=== PATIENT | female | born 2005 | race Caucasian/White ===

== ENCOUNTER 2024-06-14 17:58 | Inpatient (IN) | payer OTHER, SELFPAY ==
[2024-06-14] VITALS (7 sets, daily range): BP systolic 99–139; BP diastolic 67–85; PULSE 95–124; RESP 15–20; TEMP 36.7–36.8; O2SAT 100; BMI 22.4
--- NOTE | ~2024-06-14 | XR_ITS ---
EXAMINATION: XR chest 1V portable Exam Date/Time: 06/14/2024 19:19 OFFAL [facility] P[facility]LTRY HISTORY: chest pain Comparison: None. RESULT: Lines, tubes, and devices: None. Lungs and pleura: Clear. Cardiomediastinal silhouette: Normal. Other: No acute osseous or upper abdominal finding. IMPRESSION: No acute cardiopulmonary process. Reviewed, dictated and finalized at location K. L ICER POULTRY
--- NOTE | ~2024-06-14 | CT_ITS ---
EXAMINATION: CTA chest PE protocol DATE: 06/14/2024 21:06 INDICATION: chest pain, dyspnea TECHNIQUE: Computed tomography angiography (CTA) of the chest was performed with 100 mL Omnipaque-350 intravenous contrast timed to evaluate the pulmonary arteries. Coronal maximum intensity projection 3D-reconstructions were created by the technologist. The dose-length product (DLP) was 134.79 mGy-cm. Automated exposure control and iterative reconstruction technique were employed. COMPARISON: X-ray chest, same date. FINDINGS: Lung parenchyma and airways: Clear. Pleura: Unremarkable. Thoracic inlet, axillae and chest wall: Unremarkable. Thoracic aorta: No significant dilation. No dissection. Mediastinum: Normal. Heart and pericardium: Normal. Coronary artery calcifications: Absent. Upper abdomen: No significant finding. Bones: No acute osseous finding. Pulmonary arteries: Study quality: Adequate. No pulmonary emboli detected. IMPRESSION: No CT evidence of acute pulmonary embolus. No acute process detected in the chest. Reviewed, dictated and finalized at location K. PATIONAL THERAPIST ASSISTANT
--- NOTE | 2024-06-14 18:21 | ECG_ITS ---
Test Date: 2024-06-14 18:14:32 Measurements Intervals [place] Rate: 116 P: 76 HI: 138 QRS: 71 QRSD: 81 T: -33 QT: 341 QTc: 474 Interpretive Statements SINUS TACHYCARDIA POSSIBLE LEFT ATRIAL ENLARGEMENT POSSIBLE RIGHT VENTRICULAR CONDUCTION DELAY ST-T WAVE ABNORMALITY IN ANTEROLAT/INF LEADS- CONSIDER ISCHEMIA BASELINE ARTIFACT- I, II, III, AVR, AVL, AVF ABNORMAL ECG No previous ECG available for comparison Electronically Signed On 06-16-2024 06:29:31 OPHTHALMIC ASSISTANT by Gerson Figueredo D.O.
--- NOTE | 2024-06-14 19:24 | ED_ITS ---
HPI - General Adult General Chief complaint: Arrhythmia/Palpitations Stated complaint: heart racing , chest pain Time Seen by Provider: 06/14/24 19:13 History of Present Illness HPI narrative: Patient 19-year-old female who presents emergency department chief complaint of chest pain palpitations. Patient reports that she has been having palpitations and chest pain reports that she was seen by her primary injuries he will has had a Holter monitor test is had an echo and is scheduled for a stress echo and a stress test coming up in the next week. Patient states today she started having some chest pain and felt as though her heart beating fast. Patient states she has a burning sensation in her chest as well and a heaviness sensation the patient reports she is a type 1 diabetic. Related Data Allergies Allergy/AdvReac Type Severity Reaction Status Date / Time nitrofurantoin Allergy Hives Verified 06/14/24 18:01 [From [employer] In Context[employer]] Review of Systems Review of Systems: A 10 system review of systems was completed on the patient and is negative except for what is stated in the HPI. Nursing and ancillary documentation was reviewed. Exam Narrative: GENERAL: Well-appearing, well-nourished, and in no acute distress. HEAD: Normocephalic, atraumatic. EYES: PERRLA and EOMI. ENT: Nares clear, no rhinorrhea or epistaxis. Mucous membranes moist. NECK: Supple. CHEST: Clear to auscultation. No respiratory distress. HEART: Regular rate and rhythm. No murmur heard. Normal peripheral pulses. ABDOMEN: Soft, nontender, nondistended, normal active bowel sounds. EXTREMITIES: Normal range of motion. No edema. SKIN: Warm, dry, no rash. NEURO: No focal deficits. Alert and oriented x3. PSYCH: Normal mood and affect. Course Vital Signs Vital signs: Vital Signs Pulse Rate 121 H 06/14/24 19:11 Respiratory Rate 20 06/14/24 19:11 Blood Pressure 134/84 06/14/24 19:11 Pulse Oximetry 100 06/14/24 19:11 Temperature 36.8 C 06/14/24 20:35 Pulse Rate 104 H 06/14/24 20:40 Respiratory Rate 20 06/14/24 20:40 Blood Pressure 139/85 06/14/24 20:40 Pulse Oximetry 100 06/14/24 20:40 Medical Decision Making MDM Narrative Medical decision making narrative: differential diagnosis includes DKA with euglycemia, UTI, noncompliance laboratory studies were obtained on the patient patient's blood sugar was 106 patient did have a and a gap of 22 and a CO2 of 17 beta hydroxybutyrate was elevated and the patient had a venous blood gas of pH 7.243 urinalysis was abnormal we will attempt to obtain a good clean-catch or catheterized specimen. Patient received 3 L of normal saline boluses will be started on insulin drip and D5 half normal saline with 20 potassium to maintain euglycemia the case was discussed with the hospitalist and historical society director Vital Signs Vital Signs: Vital Signs Pulse Rate 121 H 06/14/24 19:11 Respiratory Rate 20 06/14/24 19:11 Blood Pressure 134/84 06/14/24 19:11 Pulse Oximetry 100 06/14/24 19:11 Temperature 36.8 C 06/14/24 20:35 Pulse Rate 104 H 06/14/24 20:40 Respiratory Rate 20 06/14/24 20:40 Blood Pressure 139/85 06/14/24 20:40 Pulse Oximetry 100 06/14/24 20:40 Lab Data 06/14/24 19:40 06/14/24 19:40 Labs: Lab Results 06/14/24 Range/Units 19:40 WBC 15.4 H (4.5-10.0) K/mm3 RBC 5.14 (4.2-5.4) M/mm3 Hgb 16.5 H (12.0-15.0) g/dL Hct 44.8 (37.0-47.0) % MCV 87.2 (80-100) fl MCH 32.1 (26-34) pg MCHC 36.8 H (32-36) g/dl RDW 11.9 (11.5-14.5) % Plt Count 319 (150-375) k/mm3 MPV 11.2 H (7.4-10.4) fl Immature Gran % (Auto) 0.4 (0-0.5) % Neut % (Auto) 67.2 (45.5-73.1) % Lymph % (Auto) 25.3 (18.3-44.2) % [place] % (Auto) 5.8 (2.6-8.5) % Eos % (Auto) 0.5 (0-4.4) % Baso % (Auto) 0.8 (0.2-1.2) % Lymph # (Auto) 3.89 H (0.9-3.2) K/mm3 [place] # (Auto) 0.9 H (0.1-0.6) K/mm3 Eos # (Auto) 0.1 (0-0.3) K/mm3 Baso # (Auto) 0.1 (0.0-0.1) K/mm3 Abs Immat Gran (auto) 0.06 H (0.00-0.031) K/mm3 Absolute Neuts (auto) 10.3 H (1.3-6.7) K/mm3 Absolute Nucleated RBC 0.000 (0.0-0.012) K/mm3 Nucleated RBC % 0.0 (0.0-0.2) % PT 13.7 (11.1-14.7) Seconds INR 1.0 APTT 22.8 (22.3-36.8) Seconds D-Dimer 0.98 H (<0.48) ug/mL Sodium 137 (137-145) mmol/L Potassium 3.4 (3.4-5.0) mmol/L Chloride 108 H (98-107) mmol/L Carbon Dioxide 7 L (22-30) mmol/L Anion Gap 22 H (4-12) mmol/L BUN 9 (7-17) mg/dL Creatinine 0.60 L (0.7-1.0) mg/dL Estim Creat Clear Calc 104 ml/min Estimated GFR > 60 (59 - ) Glucose 106 (65-110) mg/dL Lactic Acid 1.6 (0.7-2.0) mmol/L Calcium 9.6 (8.4-10.2) mg/dL Magnesium 1.7 (1.6-2.3) mg/dL Total Bilirubin 0.8 (0.2-1.3) mg/dL AST 19 (14-36) U/L ALT 14 (6-35) U/L Alkaline Phosphatase 88 (38-126) U/L Troponin I < 0.012 (0.000-0.034) ng/mL NT-Pro-B Natriuret Pep 22 (19.9-100) pg/mL Total Protein 9.0 H (6.3-8.2) g/dL Albumin 5.2 H (3.5-5.1) g/dL Lipase 36 (23-300) U/L Beta-Hydroxybutyrate/Acetoacetate 4.41 H (0.02-0.27) mmol/L Urine Color Yellow (Yellow) Urine Appearance Turbid H (Clear) Urine pH 5.0 (5.0-9.0) Ur Specific [place] 1.035 (1.001-1.035) Urine Protein 3+ H (Negative) mg/dL Urine Glucose (UA) 3+ H (Negative) mg/dL Urine Ketones 4+ H (Negative) mg/dL Ur Blood (Man) 3+ H (Negative) Urine Nitrate Negative (Negative) Urine Bilirubin Negative (Negative) Urine Urobilinogen 0.2 (<2.0) mg/dL Add Ur Microanalysis Reviewed Leukocyte Esterase Rfl Trace H (Negative) JUNO/UL Urine RBC 6-10 H (0-2) /hpf Urine WBC >100 H (0-3) /hpf Ur Squamous Epith Cells Many H (Few) /hpf Urine Bacteria 4+ H /hpf Urine Casts 11-20 Hyaline Casts Present (None) /lpf Urine Mucus Present /lpf Urine Opiates Screen Negative (Negative) Urine Methadone Screen Negative (Negative) Ur Barbiturates Screen Negative (Negative) Ur Phencyclidine Scrn Negative (Negative) Ur Amphetamine Screen Negative (Negative) U Benzodiazepines Scrn Negative (Negative) Urine Cocaine Screen Negative (Negative) U Cannabinoids Screen Positive A (Negative) ABG Data ABG results: 06/14/24 21:29 VBG pH 7.243 L* VBG pCO2 39.9 L VBG pO2 < 27.0 L VBG HCO3 16.8 L O2 Delivery Device Room air O2 Liters/Min Not Reportable FiO2 21 Critical Care Time Critical Care Time Critical Care Time: Yes Total Critical Care Time: 30 Discharge Plan Discharge Clinical Impression: Diabetic ketosis, Abnormal urinalysis Patient Disposition: Still a Patient Condition: Stable Follow-up/Referrals: Billy,JANI Cannon [Primary Care Provider] - Time of Disposition: 21:47
[2024-06-14] MEDS: SODIUM CHLORIDE 0.9% IV 1,000 ML 999 ML IV CONT ×3 (19:47→22:56)
[2024-06-14 19:58] LABS: Basophils Absolute Auto 0.1 K/mm3 (0.0-0.1); Basophils Percent Auto 0.8 % (0.2-1.2); Eosinophils Absolute Auto 0.1 K/mm3 (0-0.3); Eosinophils Percent Auto 0.5 % (0-4.4); Hematocrit 44.8 % (37.0-47.0); Hemoglobin 16.5 g/dL (12.0-15.0); Immature Granulocyte Absolute 0.06 K/mm3 (0.00-0.031); Immature Granulocyte Percent A 0.4 % (0-0.5); Lymphocytes Absolute Auto 3.89 K/mm3 (0.9-3.2); Lymphocytes Percent Auto 25.3 % (18.3-44.2); Mean Corpuscular HGB Conc 36.8 g/dl (32-36); Mean Corpuscular Hemoglobin 32.1 pg (26-34); Mean Corpuscular Volume 87.2 fl (80-100); Mean Platelet Volume 11.2 fl (7.4-10.4); Monocytes Absolute Auto 0.9 K/mm3 (0.1-0.6); Monocytes Percent Auto 5.8 % (2.6-8.5); Neutrophils Absolute Auto 10.3 K/mm3 (1.3-6.7); Neutrophils Percent Auto 67.2 % (45.5-73.1); Platelet Count Result 319 k/mm3 (150-375); Red Blood Count 5.14 M/mm3 (4.2-5.4); Red Cell Distribution Width 11.9 % (11.5-14.5); White Blood Count 15.4 K/mm3 (4.5-10.0)
[2024-06-14 20:11] LABS: Add Urine Microscopic? YES; Appearance Urine Turbid (Clear); Bacteria Urine 4+ /hpf; Bilirubin Urine Negative (Negative); Blood Urine 3+ (Negative); Color Urine Yellow (Yellow); Glucose Urine UA 3+ mg/dL (Negative); Hyaline Casts Urine Present /lpf; Ketones Urine 4+ mg/dL (Negative); Leukocyte Esterase Ur Trace LEU/UL (Negative); Mucus Urine Present /lpf; Need Manual Microscopic Reviewed; Nitrate Urine Negative (Negative); Protein Urine 3+ mg/dL (Negative); Specific Grav Ur 1.035 (1.001-1.035); Squamous Epithelial Cell Urine Many /hpf (Few); Urobilinogen Urine 0.2 mg/dL (<2.0); WBC Urine >100 /hpf (0-3)
[2024-06-14 20:12] LABS: Alanine Aminotransferase 14 U/L (6-35); Albumin Level 5.2 g/dL (3.5-5.1); Alkaline Phosphatase 88 U/L (38-126); Anion Gap 22 mmol/L (4-12); Aspartate Amino Transferase 19 U/L (14-36); Bilirubin,Total 0.8 mg/dL (0.2-1.3); Blood Urea Nitrogen 9 mg/dL (7-17); Calcium 9.6 mg/dL (8.4-10.2); Carbon Dioxide 7 mmol/L (22-30); Chloride 108 mmol/L (98-107); Estimated CRCL calculation 104 ml/min; Estimated Glomerular Filt Rate > 60; Glucose 106 mg/dL (65-110); Lipase 36 U/L (23-300); Magnesium 1.7 mg/dL (1.6-2.3); Potassium 3.4 mmol/L (3.4-5.0); Sodium 137 mmol/L (137-145)
[2024-06-14 20:13] LABS: Lactic Acid Reflex 1.6 mmol/L (0.7-2.0)
[2024-06-14 20:15] LABS: Amphetamine Screen Urine Negative (Negative); Barbiturate Screen Urine Negative (Negative); Benzodiazepines Screen Urine Negative (Negative); Cannabinoid Screen Urine Positive (Negative); Cocaine Screen Urine Negative (Negative); Methadone Screen Urine Negative (Negative); Opiate Screen Urine Negative (Negative); Phencyclidine Screen Urine Negative (Negative); Prothrombin Time 13.7 Seconds (11.1-14.7)
[2024-06-14 20:16] LABS: Partial Thromboplastin Time 22.8 Seconds (22.3-36.8)
[2024-06-14 20:24] LABS: NT Pro B Type Natriuretic Pept 22 pg/mL (19.9-100); Troponin I < 0.012 ng/mL (0.000-0.034)
[2024-06-14 20:26] LABS: D Dimer 0.98 ug/mL (<0.48)
[2024-06-14] MEDS: POTASSIUM CHLORIDE 20 MEQ PACKET (FOR LIQUID) 40 MEQ PO (20:39)
[2024-06-14] MEDS: MAGNESIUM SULF 2 GM/WATER 50ML 2 GM/50 ML BAG IVPB (20:44)
[2024-06-14 20:58] LABS: Beta-Hydroxybutyrate/Acetoacetate 4.41 mmol/L (0.02-0.27)
[2024-06-14 21:32] LABS: Fractional Inspired Oxygen 21 %; HCO3 VBG 16.8 mEq/l (24.0-30.0); PCO2 VBG 39.9 mmHg (42.0-48.0)
[2024-06-14 21:33] LABS: Device ROOM AIR; PO2 VBG < 27.0 mmHg (35.0-45.0); pH VBG 7.243 (7.300-7.400)
[2024-06-14 21:49] LABS: Glucose Point of Care 79 mg/dl (65-105)
[2024-06-14] MEDS: KCL 20 MEQ/D5/0.45% SOD CHL 1,000 ML 150 ML IV CONT (22:07)
--- NOTE | 2024-06-14 22:17 | PC.NURSE ---
Verbal order read back from Dr. Gentile to start KCL D5 and infuse for 1 hour before starting insulin drip due to pts current BS.
[2024-06-14 22:28] LABS: Glucose Point of Care 99 mg/dl (65-105)
[2024-06-14 22:29] LABS: Anion Gap 13 mmol/L (4-12); Blood Urea Nitrogen 8 mg/dL (7-17); Calcium 8.4 mg/dL (8.4-10.2); Carbon Dioxide 11 mmol/L (22-30); Chloride 108 mmol/L (98-107); Estimated CRCL calculation 123 ml/min; Estimated Glomerular Filt Rate > 60; Glucose 96 mg/dL (65-110); Potassium 4.7 mmol/L (3.4-5.0); Sodium 132 mmol/L (137-145)
[2024-06-14 22:35] LABS: Phosphorus 1.7 mg/dL (2.5-4.5)
[2024-06-14 22:42] LABS: Hemoglobin A1C 12.6 % (<5.7)
[2024-06-14 23:37] LABS: Glucose Point of Care 98 mg/dl (65-105)
--- NOTE | 2024-06-14 23:43 | P.HP_ITS ---
H&P: HPI History of Present Illness Date/Time: 06/14/24 23:43 Chief Complaint: Heart is racing Narrative: 19-year-old female with a past medical history of type 1 diabetes mellitus since age 12 and grade 2 bladder reflux who presented to the ER with chest pain and ?heart racing. The patient recently had EKG, echocardiogram and heart monitor due to episodes of tachycardia. She reports that for the last 6 or 8 weeks she had been having episodes of heart racing. She reports that her smart watch has told her heart rate is been up to 210. She had a heart Holter taken off yesterday. She has an echocardiogram and stress test coming up next week. She reports that she has been having substernal burning chest pain that is also stabbing in nature. The pain comes and goes and lasts anywhere from a few minut es to an indeterminate amount of time. She reports that the symptoms can occur ?up to 30-40 times a day?. She reports that usually the chest pain occurs when her heart is beating fast. She was recently evaluated at a small outside ER and discharged home about 2 weeks ago. She was hospitalized for DKA about 2 months ago. She states that she does not remember what her A1c is but she knows that is higher than what is post be for her goal. She thinks that it may be 9 or 10. However she reports that for the most part her glucoses are well controlled between 90 and 110. She reports that she was recently started on Omnipod. At the time my evaluation I did look at the patient's glucoses in documentation on her device. Next the patient initial glucose with changing of her sensor and Omnipod today when the pump was initially applied her glucoses were in the 350s. I do not have access to the records of what her glucoses were prior. However since she has placed her insulin pump on her glucoses have come down into the 90s in appear to have stayed there since then. She reports that any time she eats her glucoses do 10 to shoot up. She states that her insulin to carb ratio is 1 unit of insulin for every 8 carbs. She has a correction factor of 1 unit of insulin for every 10 g of glucose above 130. Her basal rate on her Omnipod between 00:00 and 12:00 is 0.75 units and between 12:00 and 00:00 at 0.9 units. She states that her primary care provider has been managing her diabetes. She is supposed to follow-up with the treatment technician in the next couple of months. She has been having intermittent symptoms of polydipsia and polyuria. She denies any dysuria or acute polyuria this time. She denies any hematuria. She reports that she is on chronic fluconazole for the last 6 months due to yeast infections. She denies dysuria, hematuria or increased urinary urgency from baseline. She has been having some intermittent nausea but denies any currently. She has had significant weight loss but she cannot give me a time frame her weight loss or specific amount. She states that her sister used to weigh the same amount and her sister who was at bedside appears to be 20-30 lb heavier than the patient in general. Review of Systems Review of Systems: 12 systems were reviewed with pertinent positives and negatives per HPI. Except as documented in the HPI, all other systems were reviewed and are negative. [facility] Past Medical History Medical History (Updated 06/15/24 @ 02:28 by Valarie Gentile DO) Anxiety and depression Reflex neuropathic bladder, not elsewhere classified Type 1 diabetes mellitus Surgical History Surgical History (Updated 06/15/24 @ 02:08 by Valarie Gentile DO) History of section, low transverse (06/2022) With delivery of term male infant Family History Family History (Updated 06/15/24 @ 00:14 by Nereida Bourgeois RN) Grandparent Congestive heart failure Social History Social History (Updated 06/15/24 @ 02:11 by Valarie eGntile DO) Social History: The patient is single. She and her 2-year-old son live with her parents. 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 She has smoked/weight since she was 14. She reports that she quit taking marijuana last week in April of 2024. She drinks 1-2 alcoholic beverages once or twice a week. Code status: Full code Surrogate decision maker: Mother Years smoked: 3 Smoking status: Current every day smoker Tobacco type: e-cigarettes/vaping Alcohol intake: current Drinks per week: 4 Substance use: former Substance use type: marijuana Last use: 04/2024 Do You Feel Safe in your Home?: Yes Lack of Transportation: No Lack of Food: Never True Current Housing: I Have Housing Concerned About Future Housing: No Difficulty Paying Gas/Electric Bills: No Difficulty Paying for Meds: No Currently Unemployed: No Education: High School Diploma/GED Difficulty w/ Childcare or Family Care: No Spiritual care concerns: No Meds Home Medications and Allergies Home Medications Medication Instructions Recorded Confirmed Type blood-glucose sensor (Dexcom G7 06/15/24 06/15/24 History Sensor device) buspirone 10 mg tablet 15 mg PO TID 06/15/24 06/15/24 History diclofenac sodium 75 mg 50 mg PO DAILY 06/15/24 06/15/24 History tablet,delayed release escitalopram oxalate 20 mg tablet 20 mg PO DAILY 06/15/24 06/15/24 History insulin lispro 100 unit/mL 15 unit subcut DAILY 06/15/24 06/15/24 History subcutaneous pen (Humalog KwikPen (U-100) Insulin) pen needle, diabetic 31 gauge x 06/15/24 06/15/24 History 5/16 (BD Ultra-Fine Short Pen Needle) quetiapine 50 mg tablet 50 mg PO DAILY 06/15/24 06/15/24 History Allergies Allergy/AdvReac Type Severity Reaction Status Date / Time nitrofurantoin Allergy Hives Verified 06/14/24 18:01 [From Macrobid] Vital Signs Vital Signs - 24 hr 06/14/24 19:11 06/14/24 19:48 06/14/24 20:35 Temperature 98.2 F Pulse Rate 121 H 124 H Respiratory Rate 20 Blood Pressure 134/84 Pulse Oximetry 100 06/14/24 20:40 06/14/24 22:24 Temperature Pulse Rate 104 H 104 H Respiratory Rate 20 15 Blood Pressure 139/85 119/82 Pulse Oximetry 100 100 Exam Narrative: Weight 57.6 kg BMI 22.5 Const: Other: No acute distress, well-developed well-nourished, appears stated age HENMT: Other: Mucous membranes are tacky, no oral pharyngeal erythema, fair dentition, head is normocephalic atraumatic Eyes: Other: Pupils are equal and reactive, no scleral icterus Neck: Other: No JVD, no gross thyromegaly Resp: Other: Clear to auscultation bilaterally, no increased work of breathing Cardio: Other: Sinus tachycardia, 2+ bilateral radial pedal pulses, no murmur GI: Other: Soft, nontender, nondistended, positive bowel sounds, belly button ring present Skin: Other: No jaundice, no pallor Neuro: Other: Alert oriented, speech is clear, no facial asymmetry, moves all extremities equally Extrem: Other: No clubbing, cyanosis or edema Psych: Other: Anxious, pleasant, cooperative, fair judgment and insight H&P: Results Labs Labs: Short CBC 06/14/24 Range/Units 19:40 WBC 15.4 H (4.5-10.0) K/mm3 Hgb 16.5 H (12.0-15.0) g/dL Hct 44.8 (37.0-47.0) % Plt Count 319 (150-375) k/mm3 BMP 06/14/24 06/14/24 19:40 22:03 Sodium 137 132 L Potassium 3.4 4.7 Chloride 108 H 108 H Carbon Dioxide 7 L 11 L BUN 9 8 Creatinine 0.60 L 0.50 L Glucose 106 96 Calcium 9.6 8.4 Cardiac Enzymes 06/14/24 Range/Units 19:40 Troponin I < 0.012 (0.000-0.034) ng/mL Liver Function 06/14/24 Range/Units 19:40 Total Bilirubin 0.8 (0.2-1.3) mg/dL AST 19 (14-36) U/L ALT 14 (6-35) U/L Alkaline Phosphatase 88 (38-126) U/L Albumin 5.2 H (3.5-5.1) g/dL Urine 06/14/24 Range/Units 19:40 Urine Color Yellow (Yellow) Urine Appearance Turbid H (Clear) Urine pH 5.0 (5.0-9.0) Ur Specific [place] 1.035 (1.001-1.035) Urine Protein 3+ H (Negative) mg/dL Urine Glucose (UA) 3+ H (Negative) mg/dL Laboratory Tests 06/14/24 19:40 06/14/24 22:03 06/14/24 06/14/24 06/14/24 19:40 21:29 21:46 WBC 15.4 H RBC 5.14 Hgb 16.5 H Hct 44.8 MCV 87.2 MCH 32.1 MCHC 36.8 H RDW 11.9 Plt Count 319 MPV 11.2 H Immature Gran % (Auto) 0.4 Neut % (Auto) 67.2 Lymph % (Auto) 25.3 [place] % (Auto) 5.8 Eos % (Auto) 0.5 Baso % (Auto) 0.8 Lymph # (Auto) 3.89 H [place] # (Auto) 0.9 H Eos # (Auto) 0.1 Baso # (Auto) 0.1 Abs Immat Gran (auto) 0.06 H Absolute Neuts (auto) 10.3 H Absolute Nucleated RBC 0.000 Nucleated RBC % 0.0 PT 13.7 INR 1.0 APTT 22.8 D-Dimer 0.98 H VBG pH 7.243 L* VBG pCO2 39.9 L VBG pO2 < 27.0 L VBG HCO3 16.8 L O2 Delivery Device Room air O2 Liters/Min Not Reportable FiO2 21 Sodium 137 Potassium 3.4 Chloride 108 H Carbon Dioxide 7 L Anion Gap 22 H BUN 9 Creatinine 0.60 L Estim Creat Clear Calc 104 Estimated GFR > 60 Glucose 106 POC Capillary Glucose 79 Hemoglobin A1c Lactic Acid 1.6 Calcium 9.6 Phosphorus Magnesium 1.7 Total Bilirubin 0.8 AST 19 ALT 14 Alkaline Phosphatase 88 Troponin I < 0.012 NT-Pro-B Natriuret Pep 22 Total Protein 9.0 H Albumin 5.2 H Lipase 36 Beta-Hydroxybutyrate/Acetoacetate 4.41 H Urine Color Yellow Urine Appearance Turbid H Urine pH 5.0 Ur Specific [place] 1.035 Urine Protein 3+ H Urine Glucose (UA) 3+ H Urine Ketones 4+ H Ur Blood (Man) 3+ H Urine Nitrate Negative Urine Bilirubin Negative Urine Urobilinogen 0.2 Add Ur Microanalysis Reviewed Leukocyte Esterase Rfl Trace H Urine RBC 6-10 H Urine WBC >100 H Ur Squamous Epith Cells Many H Urine Bacteria 4+ H Urine Casts 11-20 Hyaline Casts Present Urine Mucus Present Urine Opiates Screen Negative Urine Methadone Screen Negative Ur Barbiturates Screen Negative Ur Phencyclidine Scrn Negative Ur Amphetamine Screen Negative U Benzodiazepines Scrn Negative Urine Cocaine Screen Negative U Cannabinoids Screen Positive A 06/14/24 06/14/24 06/14/24 22:03 22:13 23:34 WBC RBC Hgb Hct MCV MCH MCHC RDW Plt Count MPV Immature Gran % (Auto) Neut % (Auto) Lymph % (Auto) [place] % (Auto) Eos % (Auto) Baso % (Auto) Lymph # (Auto) [place] # (Auto) Eos # (Auto) Baso # (Auto) Abs Immat Gran (auto) Absolute Neuts (auto) Absolute Nucleated RBC Nucleated RBC % PT INR APTT D-Dimer VBG pH VBG pCO2 VBG pO2 VBG HCO3 O2 Delivery Device O2 Liters/Min FiO2 Sodium 132 L Potassium 4.7 Chloride 108 H Carbon Dioxide 11 L Anion Gap 13 H BUN 8 Creatinine 0.50 L Estim Creat Clear Calc 123 Estimated GFR > 60 Glucose 96 POC Capillary Glucose 99 98 Hemoglobin A1c 12.6 H Lactic Acid Calcium 8.4 Phosphorus 1.7 L Magnesium Total Bilirubin AST ALT Alkaline Phosphatase Troponin I NT-Pro-B Natriuret Pep Total Protein Albumin Lipase Beta-Hydroxybutyrate/Acetoacetate Urine Color Urine Appearance Urine pH Ur Specific [place] Urine Protein Urine Glucose (UA) Urine Ketones Ur Blood (Man) Urine Nitrate Urine Bilirubin Urine Urobilinogen Add Ur Microanalysis Leukocyte Esterase Rfl Urine RBC Urine WBC Ur Squamous Epith Cells Urine Bacteria Urine Casts Hyaline Casts Urine Mucus Urine Opiates Screen Urine Methadone Screen Ur Barbiturates Screen Ur Phencyclidine Scrn Ur Amphetamine Screen U Benzodiazepines Scrn Urine Cocaine Screen U Cannabinoids Screen Impressions Chest X-Ray 06/14/24 19:30 (personally reviewed and interpreted. IMPRESSION: No acute cardiopulmonary process. Chest CTA 06/14/24 21:10 (personally reviewed) IMPRESSION: No CT evidence of acute pulmonary embolus. No acute process detected in the chest. EKG: Personally reviewed. Sinus tachycardia rate 116 normal QT interval Assessment and Plan Assessment and plan (1) DKA, type 1: Qualifiers: Diabetes mellitus complication detail: without coma Qualified Code(s): E10.10 - Type 1 diabetes mellitus with ketoacidosis without coma Code(s): E10.10 - Type 1 diabetes mellitus with ketoacidosis without coma Status: Acute (2) Tachycardia: Code(s): R00.0 - Tachycardia, unspecified Status: Acute (3) Abnormal urinalysis: Code(s): R82.90 - Unspecified abnormal findings in urine Status: Acute (4) Severe dehydration: Code(s): E86.0 - Dehydration Status: Acute (5) Acute hypokalemia: Code(s): E87.6 - Hypokalemia Status: Acute (6) Hypophosphatemia: Code(s): E83.39 - Other disorders of phosphorus metabolism Status: Acute Plan Patient presents with euglycemic but has markedly elevated anion gap and low serum bicarb. Additional testing demonstrated the patient had elevated beta hydroxy butyrate and VBG demonstrated metabolic acidosis. I suspect patient is a combination of DKA and starvation ketosis. Given the patient's report of pal pitations and other such symptoms I suspect patient has been volume depleted and I would not be surprised if patient had been at least mildly acidotic on and off for a while. Patient received 1.5 L of IV fluids in the ER with an additional 1.5 L that had been ordered but not yet administered on arrival to the ICU. We completed the bolus fluids. The patient has been euglycemic since presentation despite being started on D5 half-normal saline +20 mEq of potassium chloride. The patient is requesting to eat and given her euglycemic state and the need for the patient to actually receive insulin I did advanced the patient's diet to consistent carbohydrate so that we could start insulin drip. Patient's glucoses rapidly climbed to greater than 250. Insulin drip was started. Will continue drip per protocol and will monitor serial electrolyte panel. The patient does have sinus tachycardia initial EKG demonstrated possible left atrial enlargement right ventricular conduction delay ST deviation moderate T- wave abnormality anterior lateral and inferior leads but initial troponin was negative 3 hour troponin also returned negative after arrival to the ICU. The patient's tachycardia had improved significantly with 1.5 L fluid bolus. I feel the patient's palpitations are due to dehydration, DKA and less likely due to structural abnormality or rhythm derangement from cardiac pacemaker. I suspect patient's acidosis is making patient's rhythm more irregular.. Also the patient seems quite anxious in the seems to be feeding some of the patient's tachycardia as she starts talking about her symptoms her heart rate does climb more. Will continue IV fluids and will complete 3 sets of troponins. Repeat EKG on arrival to the ICU demonstrated normal sinus rhythm with a rate of 90 with normal intervals with possible right ventricular conduction delay in V1 and V2 with nonspecific T-wave abnormality (personally interpreted and reviewed). I suspect that part the patient's burning sensation in her chest may also be reflux. Will place patient on Protonix. The patient does have abnormal UA however this seems to be a poor specimen with many squamous cells and quite concentrated with 4+ ketones 3+ glucose and significant protein. She denies significant urinary symptoms to suggest infection. Urine culture and blood cultures are pending. Will hold off on antibiotic therapy and will await culture results. Patient does meet SIRS criteria with tachycardia and leukocytosis however these symptoms are likely due to patient's volume status/hemoconcentration and DKA in less likely due to infection Patient did have some mild hypokalemia and magnesium that was lower limit of no rmal given the patient's history of palpitations she did receive potassium supplementation and magnesium supplementation in the ER. Repeat potassium level was normal at 4.7. Phosphorus level was obtained which also demonstrated hypophosphatemia. Potassium phosphate has been ordered. Will monitor electrolyte panels as discussed above. Will repeat CBC in a.m.. 1 hour spent in critical care activities. Majority of time was spent in direct patient Education and discussion of plan and management. Due to a high probability of clinically significant, life threatening deterioration, the patient required my highest level of preparedness to intervene emergently and I personally spent this critical care time directly and personally managing the patient. This critical care time included obtaining a history; examining the patient; pulse oximetry; ordering and review of studies; arranging urgent treatment with development of a management plan; evaluation of patient's response to treatment; frequent reassessment; and discussions with other providers. It was exclusive of separately billable procedures and treating other patients and teaching time. Please see Assessment and Plan section and the rest of the note for further information on patient assessment and treatment. Quality VTE Prophylaxis VTE prophylaxis: pharmacologic ordered (Lovenox 40 mg subQ daily.) Hospitalist [facility] Advance Care Plan I have confirmed that the patient's Advanced Care Plan is present, code status is documented, or surrogate decision maker is listed in patient medical record.: Yes Medication Reconciliation I have utilized all available resources to obtain, update and review the patients current medications (includes all prescriptions, OTC, herbals, cannabis, and nutritional supplements).: Yes
--- NOTE | 2024-06-14 23:44 | ADMGEN ---
This patient, Amaya Tomlinson, was admitted to Intensive Care Unit-6. Patient/family oriented to hospital policies and general routines including ID bracelet, bed and alarms, visiting hours, pain management, procedures, bathroom and other care routines, personal items, smoking policy, room service/diet, and visiting hours. Recieved patient from Lindsay Lloyd RN who states patient has recieved 1.5/3 L fluids, continuing to infuse fluids now. Information on how to activate the Rapid Response Team has been discussed. Patient/Family are encouraged to report perceived risks to care and to ask questions if they do not understand what they are told or what they should do.
[2024-06-15] VITALS (17 sets, daily range): BP systolic 87–135; BP diastolic 57–102; PULSE 74–115; RESP 10–24; TEMP 36.6–36.9; O2SAT 95–100
[2024-06-15 00:35] LABS: Glucose Point of Care 215 mg/dl (65-105)
--- NOTE | 2024-06-15 00:47 | ECG_ITS ---
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
[2024-06-15 01:05] LABS: Troponin I < 0.012 ng/mL (0.000-0.034)
[2024-06-15] MEDS: PHARMACIST COMMUNICATION ORDER 1 EACH XX (01:21)
[2024-06-15] MEDS: DEXTROSE IV CONT (01:41)
[2024-06-15] MEDS: SOD CHL IV CONT (01:41)
[2024-06-15] MEDS: INSULIN HUMAN REGULAR (*BKC) 100 UNITS in SODIUM CHLORIDE 0.9% IV 99 ML 5.95 UNITS IV CONT (01:42)
[2024-06-15 01:46] LABS: Glucose Point of Care 154 mg/dl (65-105)
[2024-06-15] MEDS: PANTOPRAZOLE SODIUM IV 40 MG VIAL IV PUSH ×3 (02:18→21:31)
[2024-06-15 02:57] LABS: MRSA (PCR) NOT DETECTED (NOT DETECTE)
[2024-06-15 02:58] LABS: Anion Gap 8 mmol/L (4-12); Blood Urea Nitrogen 5 mg/dL (7-17); Calcium 7.5 mg/dL (8.4-10.2); Carbon Dioxide 13 mmol/L (22-30); Chloride 116 mmol/L (98-107); Estimated CRCL calculation 149 ml/min; Estimated Glomerular Filt Rate > 60; Glucose 115 mg/dL (65-110); Potassium 3.1 mmol/L (3.4-5.0); Sodium 137 mmol/L (137-145)
[2024-06-15] MEDS: POTASSIUM PHOS,M-BASIC-D-BASIC 20 MMOL in SODIUM CHLORIDE 0.9% IV 250 ML 64.1 MMOL IVPB (03:19)
[2024-06-15 03:30] LABS: Glucose Point of Care 120 mg/dl (65-105)
[2024-06-15 03:36] LABS: Glucose Point of Care 114 mg/dl (65-105)
[2024-06-15 04:39] LABS: Glucose Point of Care 164 mg/dl (65-105)
[2024-06-15 05:50] LABS: Glucose Point of Care 199 mg/dl (65-105)
[2024-06-15 06:52] LABS: Hematocrit 37.6 % (37.0-47.0); Hemoglobin 13.9 g/dL (12.0-15.0); Mean Corpuscular Hemoglobin 32.5 pg (26-34); Mean Corpuscular Volume 87.9 fl (80-100); Mean Platelet Volume 11.3 fl (7.4-10.4); Platelet Count Result 197 k/mm3 (150-375); Red Blood Count 4.28 M/mm3 (4.2-5.4); Red Cell Distribution Width 12.2 % (11.5-14.5); White Blood Count 7.4 K/mm3 (4.5-10.0)
[2024-06-15 07:09] LABS: Anion Gap 9 mmol/L (4-12); Blood Urea Nitrogen 5 mg/dL (7-17); Calcium 7.6 mg/dL (8.4-10.2); Carbon Dioxide 13 mmol/L (22-30); Chloride 114 mmol/L (98-107); Estimated CRCL calculation 149 ml/min; Estimated Glomerular Filt Rate > 60; Glucose 190 mg/dL (65-110); Potassium 4.2 mmol/L (3.4-5.0); Sodium 136 mmol/L (137-145)
[2024-06-15 07:15] LABS: Fractional Inspired Oxygen 21 %; PO2 VBG 156.8 mmHg (35.0-45.0); pH VBG 7.298 (7.300-7.400)
[2024-06-15 07:16] LABS: Device ROOM AIR; PCO2 VBG 29.2 mmHg (42.0-48.0)
[2024-06-15 07:23] LABS: Glucose Point of Care 177 mg/dl (65-105)
[2024-06-15 07:46] LABS: Glucose Point of Care 165 mg/dl (65-105)
[2024-06-15] MEDS: SODIUM CHLORIDE 23.4% INJ 77 MEQ in DEXTROSE 10% 1,000 ML 150 MEQ IV CONT (07:46)
[2024-06-15] MEDS: LACTATED RINGERS 1,000 ML 999 ML IV CONT (07:46)
[2024-06-15] MEDS: ESCITALOPRAM OXALATE 10 MG TABLET 20 MG PO (08:03)
[2024-06-15] MEDS: QUEtiapine FUMARATE 25 MG TABLET 50 MG PO (08:03)
[2024-06-15] MEDS: ENOXAPARIN 30 MG/0.3 ML SYRINGE SUB-Q (08:04)
[2024-06-15 09:00] LABS: Glucose Point of Care 291 mg/dl (65-105)
--- NOTE | 2024-06-15 09:18 | P.CONIN_ITS ---
Assessment and Plan Assessment and plan (1) DKA, type 1: Qualifiers: Diabetes mellitus complication detail: without coma Qualified Code(s): E10.10 - Type 1 diabetes mellitus with ketoacidosis without coma Code(s): E10.10 - Type 1 diabetes mellitus with ketoacidosis without coma Status: Acute Assessment and Plan: Patient euglycemic diabetic ketoacidosis. Receive IV fluids in the ER and ICU, started on insulin infusion, patient's blood sugars were low so patient is on a D10 infusion along with DKA protocol IV fluids -anion gap has closed but patient remains acidotic -give additional 1 L of LR bolus this morning - continue insulin infusion -will wait for the next set of labs to decide with transition to long-acting insulin and sliding scale insulin (2) Hypophosphatemia: Code(s): E83.39 - Other disorders of phosphorus metabolism Status: Acute Assessment and Plan: Phosphorus has been replaced, will recheck with next blood draw (3) Acute hypokalemia: Code(s): E87.6 - Hypokalemia Status: Acute Assessment and Plan: Hypokalemia has resolved with replacement (4) Severe dehydration: Code(s): E86.0 - Dehydration Status: Acute Assessment and Plan: Patient has been adequately fluid-resuscitated, urine output has been adequate -the renal function is normal (5) Tachycardia: Code(s): R00.0 - Tachycardia, unspecified Status: Acute Assessment and Plan: Tachycardia has resolved (6) Abnormal urinalysis: Code(s): R82.90 - Unspecified abnormal findings in urine Status: Acute Assessment and Plan: Abnormal urinalysis likely related to severe dehydration -UA showed urine casts and many squamous epithelial cells -urine and blood cultures have been obtained -WBC count has resolved. Patient is afebrile Hold antibiotics for now (7) Anxiety and depression: Code(s): F41.9 - Anxiety disorder, unspecified; F32.A - Depression, unspecified Status: Acute Assessment and Plan: Quetiapine, escitalopram, buspirone will restarted Plan DVT prophylaxis: Lovenox Stress ulcer prophylaxis: Not indicated Nutrition: Diabetic diet Code Status: Full code Critical Care Time Spent: 48 minutes Due to a high probability of clinically significant, life threatening deterioration, the patient required my highest level of preparedness to int ervene emergently and I personally spent this critical care time directly and personally managing the patient. This critical care time included obtaining a history; examining the patient; pulse oximetry; ordering and review of studies; arranging urgent treatment with development of a management plan; evaluation of patient's response to treatment; frequent reassessment; and discussions with other providers. It was exclusive of separately billable procedures and treating other patients and teaching time. Please see Assessment and Plan section and the rest of the note for further information on patient assessment and treatment This dictation may have been done utilizing a voice recognition system. Attempts have been made to correct errors. However, there may be uncorrected grammatical, spelling, and recognitions errors present. Craft Recruiter Consult Note Consult date: 06/15/24 Reason for consult: Euglycemic diabetic ketoacidosis, possible starvation ketoacidosis HPI: Amaya Tomlinson is a 19 year old female with past medical history of diabetes type 1, neuropathic bladder, anxiety and depression presented the ED chest pain, palpitations and racing of her heart. Chest pain was burning in sensation. Patient was significantly acidotic in the ED with normal blood sugars. Patient does have insulin pump/Omnipod. Patient was given 2 L of IV fluids in the ER, started on D10 0.45 saline with potassium IV fluids due to blood sugars being low, phosphorus was repleted, started on insulin infusion and transferred to the ICU for further management Patient seen and examined the ICU this morning, is awake, alert, not very pleasant, does not want to answer many questions as she states that she is already told the night doctor everything. Upon further questioning, She stated that she has not been eating too well for a while but she does not know how many days, weeks or months. Hemoglobin A1c was 12.6 on admission, she states her blood sugars have been in 90s to 100s at home. Currently denies any nausea, vomiting, abdominal pain, chest pain, shortness of breath, palpitation Review of Systems Review of Systems: All systems reviewed & are unremarkable except as noted in HPI and below PMFSH Past Medical History Medical History (Updated 06/15/24 @ 09:38 by Mayela Mandel MD) Anxiety and depression Reflex neuropathic bladder, not elsewhere classified Type 1 diabetes mellitus Surgical History Surgical History (Updated 06/15/24 @ 02:08 by Valarie Gentile DO) History of section, low transverse (06/2022) With delivery of term male infant Family History Family History (Updated 06/15/24 @ 00:14 by Nereida Bourgeois RN) Grandparent Congestive heart failure Social History Social History (Updated 06/15/24 @ 02:11 by Valarie Gentile DO) Social History: The patient is single. She and her 2-year-old son live with her parents. 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 She has smoked/weight since she was 14. She reports that she quit taking marijuana last week in April of 2024. She drinks 1-2 alcoholic beverages once or twice a week. Code status: Full code Surrogate decision maker: Mother Years smoked: 3 Smoking status: Current every day smoker Tobacco type: e-cigarettes/vaping Alcohol intake: current Drinks per week: 4 Substance use: former Substance use type: marijuana Last use: 04/2024 Do You Feel Safe in your Home?: Yes Lack of Transportation: No Lack of Food: Never True Current Housing: I Have Housing Concerned About Future Housing: No Difficulty Paying Gas/Electric Bills: No Difficulty Paying for Meds: No Currently Unemployed: No Education: High School Diploma/GED Difficulty w/ Childcare or Family Care: No Spiritual care concerns: No Meds Home Medications and Allergies Home Medications Medication Instructions Recorded Confirmed Type blood-glucose sensor (Dexcom G7 06/15/24 06/15/24 History Sensor device) buspirone 10 mg tablet 15 mg PO TID 06/15/24 06/15/24 History diclofenac sodium 75 mg 50 mg PO DAILY 06/15/24 06/15/24 History tablet,delayed release escitalopram oxalate 20 mg tablet 20 mg PO DAILY 06/15/24 06/15/24 History insulin lispro 100 unit/mL 15 unit subcut DAILY 06/15/24 06/15/24 History subcutaneous pen (Humalog KwikPen (U-100) Insulin) pen needle, diabetic 31 gauge x 06/15/24 06/15/24 History 12/12 (BD Ultra-Fine Short Pen Needle) quetiapine 50 mg tablet 50 mg PO DAILY 06/15/24 06/15/24 History Allergies Allergy/AdvReac Type Severity Reaction Status Date / Time nitrofurantoin Allergy Hives Verified 06/14/24 18:01 [From Macrobid] Vital Signs Vital Signs - 24 hr 06/14/24 19:11 06/14/24 19:48 06/14/24 20:35 Temperature 98.2 F Pulse Rate 121 H 124 H Respiratory Rate 20 Blood Pressure 134/84 Pulse Oximetry 100 Oxygen Delivery 06/14/24 20:40 06/14/24 22:24 06/15/24 00:00 Temperature Pulse Rate 104 H 104 H Respiratory Rate 20 15 Blood Pressure 139/85 119/82 Pulse Oximetry 100 100 Oxygen Delivery Room Air 06/15/24 00:00 06/15/24 02:00 06/15/24 02:00 Temperature Pulse Rate 103 H 92 96 Respiratory Rate 13 Blood Pressure 91/63 L Pulse Oximetry 97 Oxygen Delivery 06/15/24 00:00 06/14/24 22:30 06/14/24 23:28 Temperature 97.8 F 98.0 F Pulse Rate 97 100 95 Respiratory Rate 17 15 Blood Pressure 114/102 H 99/67 L Pulse Oximetry 99 100 Oxygen Delivery 06/15/24 04:00 06/15/24 04:00 06/15/24 04:00 Temperature 98.0 F Pulse Rate 87 81 Respiratory Rate 12 Blood Pressure 101/68 Pulse Oximetry 97 98 Oxygen Delivery Room Air 06/15/24 06:00 06/15/24 06:00 06/15/24 03:04 Temperature Pulse Rate 74 82 Respiratory Rate 12 Blood Pressure 87/59 L Pulse Oximetry 100 97 Oxygen Delivery Autopap 06/15/24 07:11 06/15/24 07:12 06/15/24 07:13 Temperature Pulse Rate 108 H 100 105 H Respiratory Rate 18 20 14 Blood Pressure 106/73 119/91 H 104/81 Pulse Oximetry 100 100 100 Oxygen Delivery 06/15/24 08:00 06/15/24 08:00 Temperature 97.8 F Pulse Rate 97 95 Respiratory Rate 10 L Blood Pressure 127/84 Pulse Oximetry 100 Oxygen Delivery Exam Narrative: General: Not so pleasant female, in no acute distress HEENT:? Pupils equal and react, sclera is clear, moist oral mucosa Neck:? Supple Respiratory:? Clear to auscultation bilaterally Cardiac:? S1-S2 normal, regular rate and rhythm Abdomen:? Soft, nontender, nondistended, normoactive bowel sounds Extremities:? no edema, palpable pedal pulses Neuro:? Nonfocal, neurologically intact Skin:? Warm and dry, no skin lesions Psych:? Normal mentation and affect Results Labs 06/15/24 06:40 06/15/24 06:40 Labs: Short CBC 06/14/24 06/15/24 Range/Units 19:40 06:40 WBC 15.4 H 7.4 (4.5-10.0) K/mm3 Hgb 16.5 H 13.9 (12.0-15.0) g/dL Hct 44.8 37.6 (37.0-47.0) % Plt Count 319 197 (150-375) k/mm3 BMP 06/14/24 06/14/24 06/15/24 19:40 22:03 02:43 Sodium 137 132 L 137 Potassium 3.4 4.7 3.1 L Chloride 108 H 108 H 116 H Carbon Dioxide 7 L 11 L 13 L BUN 9 8 5 L Creatinine 0.60 L 0.50 L 0.40 L Glucose 106 96 115 H Calcium 9.6 8.4 7.5 L 06/15/24 06:40 Sodium 136 L Potassium 4.2 Chloride 114 H Carbon Dioxide 13 L BUN 5 L Creatinine 0.40 L Glucose 190 H Calcium 7.6 L Cardiac Enzymes 06/14/24 06/14/24 Range/Units 19:40 23:54 Troponin I < 0.012 < 0.012 (0.000-0.034) ng/mL Liver Function 06/14/24 Range/Units 19:40 Total Bilirubin 0.8 (0.2-1.3) mg/dL AST 19 (14-36) U/L ALT 14 (6-35) U/L Alkaline Phosphatase 88 (38-126) U/L Albumin 5.2 H (3.5-5.1) g/dL Urine 06/14/24 Range/Units 19:40 Urine Color Yellow (Yellow) Urine Appearance Turbid H (Clear) Urine pH 5.0 (5.0-9.0) Ur Specific [place] 1.035 (1.001-1.035) Urine Protein 3+ H (Negative) mg/dL Urine Glucose (UA) 3+ H (Negative) mg/dL Quality VTE Prophylaxis VTE prophylaxis: pharmacologic ordered Hospitalist MIPS Advance Care Plan I have confirmed that the patient's Advanced Care Plan is present, code status is documented, or surrogate decision maker is listed in patient medical record.: Yes Medication Reconciliation I have utilized all available resources to obtain, update and review the patients current medications (includes all prescriptions, OTC, herbals, c annabis, and nutritional supplements).: Yes
[2024-06-15 09:58] LABS: Glucose Point of Care 351 mg/dl (65-105)
[2024-06-15] MEDS: LACTATED RINGERS 1,000 ML 150 ML IV CONT (10:05)
[2024-06-15 10:26] LABS: Hemoglobin A1C 12.7 % (<5.7)
[2024-06-15] MEDS: KCL 20 MEQ/D5/0.45% SOD CHL 1,000 ML 150 ML IV CONT (10:51)
[2024-06-15 10:56] LABS: Anion Gap 8 mmol/L (4-12); Blood Urea Nitrogen 4 mg/dL (7-17); Calcium 7.8 mg/dL (8.4-10.2); Carbon Dioxide 15 mmol/L (22-30); Chloride 114 mmol/L (98-107); Estimated CRCL calculation 149 ml/min; Estimated Glomerular Filt Rate > 60; Glucose 178 mg/dL (65-110); Magnesium 1.6 mg/dL (1.6-2.3); Phosphorus 2.5 mg/dL (2.5-4.5); Potassium 3.2 mmol/L (3.4-5.0); Sodium 137 mmol/L (137-145)
[2024-06-15 10:57] LABS: Glucose Point of Care 173 mg/dl (65-105)
[2024-06-15 11:52] LABS: Glucose Point of Care 87 mg/dl (65-105)
[2024-06-15] MEDS: POTASSIUM CHLORIDE 20 MEQ PACKET (FOR LIQUID) 40 MEQ PO (12:22)
[2024-06-15 12:28] LABS: Glucose Point of Care 74 mg/dl (65-105)
[2024-06-15 13:00] LABS: Glucose Point of Care 166 mg/dl (65-105)
[2024-06-15] MEDS: INSULIN GLARGINE (*BKC) 100 UNITS/ML 10 UNITS SUB-Q (13:17)
[2024-06-15] MEDS: busPIRone HCL 5 MG TABLET 15 MG PO ×2 (13:17→16:39)
[2024-06-15 14:19] LABS: Glucose Point of Care 292 mg/dl (65-105)
[2024-06-15 16:05] LABS: Glucose Point of Care 338 mg/dl (65-105)
[2024-06-15 17:35] LABS: Glucose Point of Care 394 mg/dl (65-105)
[2024-06-15] MEDS: INSULIN ASPART (*BKC) 100 UNITS/ML SUB-Q ×2 (17:35→21:29)
[2024-06-15 21:40] LABS: Glucose Point of Care 339 mg/dl (65-105)
[2024-06-16] VITALS: BP 101/64; PULSE 87; RESP 17; TEMP 36.7; O2SAT 98
[2024-06-16 02:00] VITALS: BP 114/78; PULSE 85; RESP 18; O2SAT 99
[2024-06-16 04:00] VITALS: BP 102/67; PULSE 67; PULSE 68; RESP 14; TEMP 36.7; O2SAT 97
[2024-06-16 04:36] LABS: Basophils Absolute Auto 0.1 K/mm3 (0.0-0.1); Basophils Percent Auto 1.1 % (0.2-1.2); Eosinophils Absolute Auto 0.1 K/mm3 (0-0.3); Eosinophils Percent Auto 1.8 % (0-4.4); Hematocrit 37.8 % (37.0-47.0); Hemoglobin 13.4 g/dL (12.0-15.0); Immature Granulocyte Absolute 0.01 K/mm3 (0.00-0.031); Immature Granulocyte Percent A 0.2 % (0-0.5); Lymphocytes Absolute Auto 2.28 K/mm3 (0.9-3.2); Lymphocytes Percent Auto 40.4 % (18.3-44.2); Mean Corpuscular HGB Conc 35.4 g/dl (32-36); Mean Corpuscular Hemoglobin 31.8 pg (26-34); Mean Corpuscular Volume 89.8 fl (80-100); Mean Platelet Volume 11.2 fl (7.4-10.4); Monocytes Absolute Auto 0.5 K/mm3 (0.1-0.6); Neutrophils Absolute Auto 2.7 K/mm3 (1.3-6.7); Neutrophils Percent Auto 47.5 % (45.5-73.1); Platelet Count Result 167 k/mm3 (150-375); Red Blood Count 4.21 M/mm3 (4.2-5.4); Red Cell Distribution Width 12.3 % (11.5-14.5); White Blood Count 5.7 K/mm3 (4.5-10.0)
[2024-06-16 04:55] LABS: Alanine Aminotransferase 10 U/L (6-35); Albumin Level 2.9 g/dL (3.5-5.1); Alkaline Phosphatase 59 U/L (38-126); Anion Gap 6 mmol/L (4-12); Aspartate Amino Transferase 18 U/L (14-36); Bilirubin,Total 0.4 mg/dL (0.2-1.3); Blood Urea Nitrogen 4 mg/dL (7-17); Carbon Dioxide 25 mmol/L (22-30); Chloride 108 mmol/L (98-107); Estimated CRCL calculation 149 ml/min; Estimated Glomerular Filt Rate > 60; Glucose 139 mg/dL (65-110); Magnesium 1.6 mg/dL (1.6-2.3); Phosphorus 3.4 mg/dL (2.5-4.5); Sodium 139 mmol/L (137-145)
[2024-06-16 06:00] VITALS: BP 104/81; PULSE 85; RESP 16; O2SAT 100
[2024-06-16 08:00] VITALS: BP 102/57; PULSE 72; PULSE 73; RESP 18; TEMP 36.6; O2SAT 100
[2024-06-16 08:01] LABS: Glucose Point of Care 229 mg/dl (65-105)
[2024-06-16] MEDS: MAGNESIUM SULF 2 GM/WATER 50ML 2 GM/50 ML BAG IVPB (08:18)
[2024-06-16] MEDS: busPIRone HCL 5 MG TABLET 15 MG PO (08:18)
[2024-06-16] MEDS: ESCITALOPRAM OXALATE 10 MG TABLET 20 MG PO (08:19)
[2024-06-16] MEDS: QUEtiapine FUMARATE 25 MG TABLET 50 MG PO (08:19)
[2024-06-16] MEDS: ENOXAPARIN 40 MG/0.4 ML SYRINGE SUB-Q (08:19)
[2024-06-16] MEDS: POTASSIUM CHLORIDE 20 MEQ ER TABLET 40 MEQ PO (08:19)
[2024-06-16] MEDS: INSULIN ASPART (*BKC) 100 UNITS/ML SUB-Q ×2 (08:20→08:38)
[2024-06-16] MEDS: PANTOPRAZOLE SODIUM IV 40 MG VIAL IV PUSH (08:20)
[2024-06-16] MEDS: INSULIN GLARGINE (*BKC) 100 UNITS/ML 14 UNITS SUB-Q (08:37)
--- NOTE | 2024-06-16 09:15 | WPDINTPN ---
Progress Note: A&P Assessment and Plan (1) DKA, type 1: Qualifiers: Diabetes mellitus complication detail: without coma Qualified Code(s): E10.10 - Type 1 diabetes mellitus with ketoacidosis without coma Code(s): E10.10 - Type 1 diabetes mellitus with ketoacidosis without coma Status: Acute Assessment and Plan: Patient euglycemic diabetic ketoacidosis. Receive IV fluids in the ER and ICU, started on insulin infusion, patient's blood sugars were low so patient is on a D10 infusion along with DKA protocol IV fluids -anion gap had closed yesterday, transition patient to long-acting insulin and sliding scale insulin -blood sugars have remained little labile -off all IV fluid -will increase Lantus and add pre meal insulin (2) Hypophosphatemia: Code(s): E83.39 - Other disorders of phosphorus metabolism Status: Acute Assessment and Plan: Phosphorus has normalized (3) Acute hypokalemia: Code(s): E87.6 - Hypokalemia Status: Acute Assessment and Plan: Replace potassium and magnesium (4) Severe dehydration: Code(s): E86.0 - Dehydration Status: Acute Assessment and Plan: RESOLVED Patient has been adequately fluid-resuscitated, urine output has been adequate -the renal function is normal (5) Tachycardia: Code(s): R00.0 - Tachycardia, unspecified Status: Acute Assessment and Plan: TACHYCARDIA HAS RESOLVED (6) Abnormal urinalysis: Code(s): R82.90 - Unspecified abnormal findings in urine Status: Acute Assessment and Plan: Abnormal urinalysis likely related to severe dehydration -UA showed urine casts and many squamous epithelial cells -urine and blood cultures are negative -WBC count has resolved. Patient is afebrile Hold antibiotics for now (7) Anxiety and depression: Code(s): F41.9 - Anxiety disorder, unspecified; F32.A - Depression, unspecified Status: Acute Assessment and Plan: Quetiapine, escitalopram, buspirone were restarted Plan DVT prophylaxis: Lovenox Stress ulcer prophylaxis: Not indicated Nutrition: Diabetic diet and tolerating Code Status: Full code Critical Care Time Spent: 31 minutes Will transfer patient out of the ICU if okay with hospitalist Due to a high probability of clinically significant, life threatening deterioration, the patient required my highest level of preparedness to intervene emergently and I personally spent this critical care time directly and personally managing the patient. This critical care time included obtaining a history; examining the patient; pulse oximetry; ordering and review of studies; arranging urgent treatment with development of a management plan; evaluation of patient's response to treatment; frequent reassessment; and discussions with other providers. It was exclusive of separately billable procedures and treating other patients and teaching time. Please see Assessment and Plan section and the rest of the note for further information on patient assessment and treatment This dictation may have been done utilizing a voice recognition system. Attempts have been made to correct errors. However, there may be uncorrected grammatical, spelling, and recognitions errors present. Subjective Date/time seen: 06/16/24 09:15 Interval history: Reason for consult: Euglycemic diabetic ketoacidosis, possible starvation ketoacidosis 06/16/2024: Patient seen and examined the ICU, is awake, alert, denies any shortness of breath, chest pain, shortness palpitations, nausea, vomiting, abdominal pain. States she feels better. Blood sugars have been labile. Hemodynamically stable, adequate urine output, afebrile Review of Systems Review of Systems: All systems reviewed & are unremarkable except as noted in HPI and below Exam Narrative: General: Patient has been pleasant this morning, in no acute distress HEENT:? Pupils equal and react, sclera is clear, moist oral mucosa Neck:? Supple Respiratory:? Clear to auscultation bilaterally Cardiac:? S1-S2 normal, regular rate and rhythm Abdomen:? Soft, nontender, nondistended, normoactive bowel sounds Extremities:? no edema, palpable pedal pulses Neuro:? Nonfocal, neurologically intact Skin:? Warm and dry, no skin lesions Psych:? Normal mentation and affect Objective Data Vital Signs Vital Signs: Vital Signs - 24 hr 06/15/24 10:00 06/15/24 10:00 06/15/24 11:49 Temperature 98.4 F Pulse Rate 84 83 Respiratory Rate 13 Blood Pressure 106/70 Pulse Oximetry 95 Oxygen Delivery 06/15/24 12:00 06/15/24 12:00 06/15/24 14:00 Temperature Pulse Rate 102 H 115 H 106 H Respiratory Rate 18 Blood Pressure 128/82 Pulse Oximetry 99 Oxygen Delivery 06/15/24 14:00 06/15/24 16:00 06/15/24 16:00 Temperature Pulse Rate 106 H 91 Respiratory Rate 23 H Blood Pressure 135/65 Pulse Oximetry 98 Oxygen Delivery Room Air 06/15/24 16:00 06/15/24 18:00 06/15/24 18:00 Temperature 98.4 F Pulse Rate 88 91 91 Respiratory Rate 22 H 24 H Blood Pressure 117/64 115/72 Pulse Oximetry 98 98 Oxygen Delivery 06/15/24 20:00 06/15/24 20:00 06/15/24 22:00 Temperature 98.0 F Pulse Rate 103 H 94 Respiratory Rate 20 16 Blood Pressure 91/57 L 114/87 Pulse Oximetry 100 97 Oxygen Delivery Room Air 06/15/24 20:00 06/15/24 22:00 06/16/24 00:00 Temperature Pulse Rate 103 H 94 Respiratory Rate Blood Pressure Pulse Oximetry Oxygen Delivery Room Air 06/16/24 00:00 06/16/24 00:00 06/16/24 02:00 Temperature 98.1 F Pulse Rate 87 87 85 Respiratory Rate 17 Blood Pressure 101/64 Pulse Oximetry 98 Oxygen Delivery 06/16/24 02:00 06/16/24 04:00 06/16/24 04:00 Temperature 98.0 F Pulse Rate 85 67 Respiratory Rate 18 14 Blood Pressure 114/78 102/67 Pulse Oximetry 99 97 Oxygen Delivery Room Air 06/16/24 04:00 06/16/24 06:00 06/16/24 06:00 Temperature Pulse Rate 68 85 85 Respiratory Rate 16 Blood Pressure 104/81 Pulse Oximetry 100 Oxygen Delivery 06/16/24 08:00 Temperature 97.8 F Pulse Rate 73 Respiratory Rate 18 Blood Pressure 102/57 L Pulse Oximetry 100 Oxygen Delivery Intake/Output Intake/Output: Intake & Output 06/13/24 06/14/24 06/15/24 06/16/24 23:59 23:59 23:59 23:59 Intake Total 2036 4741.6170 Output Total 1899 Balance 2036 5425.6094 Meds/Results Medications: Active Medications Generic Name Dose Route Start Last Admin Trade Name Freq PRN Reason Stop Dose Admin Acetaminophen 650 mg 06/14/24 21:47 Acetaminophen 325 Mg Tablet PO Q4H PRN Mild Pain (1-3) or Fever Buspirone HCl 15 mg 06/15/24 09:00 06/16/24 08:18 Buspirone Hcl 5 Mg Tablet PO 15 mg TID VIVIAN Administration Dextrose 12.5 gm 06/15/24 12:00 Dextrose 50% 25 Gm/50 Ml Syringe IV PUSH PRN PRN Hypoglycemia Protocol Enoxaparin Sodium 40 mg 06/16/24 09:00 06/16/24 08:19 Enoxaparin 40 Mg/0.4 Ml Syringe SUB-Q 40 mg DAILY VIVIAN Administration Escitalopram Oxalate 20 mg 06/15/24 09:00 06/16/24 08:19 Escitalopram Oxalate 10 Mg Tablet PO 20 mg DAILY VIVIAN Administration Glucagon 1 mg 06/15/24 12:00 Glucagon For Inj 1 Mg Vial IM PRN PRN Hypoglycemia Protocol Glucose 15 gm 06/15/24 12:00 Glucose Oral Gel 15 Gm Of Glucse In 37.5 Gm Tube PO PRN PRN Hypoglycemia Protocol Dextrose 1,000 mls @ 100 mls/hr 06/15/24 12:00 Dextrose 5% 1,000 Ml IVPB PRN PRN Hypoglycemia Protocol Insulin Aspart 1 - 3 units 06/15/24 21:00 06/15/24 21:29 Insulin Aspart (*Bkc) 100 Units/Ml SUB-Q 2 units HS [facility] Administration Protocol Insulin Aspart 3 - 6 units 06/15/24 12:00 06/16/24 08:20 Insulin Aspart (*Bkc) 100 Units/Ml SUB-Q 3 units TIDWM [facility] Administration Protocol Insulin Aspart 3 units 06/16/24 08:30 06/16/24 08:38 Insulin Aspart (*Bkc) 100 Units/Ml 0.05 units/kg (3 units) 3 units SUB-Q Administration TIDWM [facility] Insulin Glargine 14 units 06/16/24 09:00 06/16/24 08:37 Insulin Glargine (*Bkc) 100 Units/Ml SUB-Q 14 units DAILY [facility] Administration Ondansetron HCl 4 mg 06/14/24 21:47 Ondansetron Inj 4 Mg/2 Ml Vial IV PUSH Q4H PRN Nausea Pantoprazole Sodium 40 mg 06/15/24 09:00 06/16/24 08:20 Pantoprazole Sodium Iv 40 Mg Vial IV PUSH 40 mg Q12HR [facility]IVIAN Administration Quetiapine Fumarate 50 mg 06/15/24 09:00 06/16/24 08:19 Quetiapine Fumarate 25 Mg Tablet PO 50 mg DAILY [facility]IVIAN Administration Radiology Results: ITS Impressions Chest X-Ray 06/14/24 19:30 IMPRESSION: No acute cardiopulmonary process. Chest CTA 06/14/24 21:10 IMPRESSION: No CT evidence of acute pulmonary embolus. No acute process detected in the chest. Labs Labs: Laboratory Results - last 24 hr 06/15/24 06/15/24 06/15/24 06:35 09:51 10:42 WBC RBC Hgb Hct MCV MCH MCHC RDW Plt Count MPV Immature Gran % (Auto) Neut % (Auto) Lymph % (Auto) [place] % (Auto) Eos % (Auto) Baso % (Auto) Lymph # (Auto) [place] # (Auto) Eos # (Auto) Baso # (Auto) Abs Immat Gran (auto) Absolute Neuts (auto) Absolute Nucleated RBC Nucleated RBC % Sodium 137 Potassium 3.2 L Chloride 114 H Carbon Dioxide 15 L Anion Gap 8 BUN 4 L Creatinine 0.40 L Estim Creat Clear Calc 149 Estimated GFR > 60 Glucose 178 H POC Capillary Glucose 351 H Hemoglobin A1c 12.7 H Calcium 7.8 L Phosphorus 2.5 Magnesium 1.6 Total Bilirubin AST ALT Alkaline Phosphatase Total Protein Albumin 06/15/24 06/15/24 06/15/24 10:44 11:43 12:19 WBC RBC Hgb Hct MCV MCH MCHC RDW Plt Count MPV Immature Gran % (Auto) Neut % (Auto) Lymph % (Auto) [place] % (Auto) Eos % (Auto) Baso % (Auto) Lymph # (Auto) [place] # (Auto) Eos # (Auto) Baso # (Auto) Abs Immat Gran (auto) Absolute Neuts (auto) Absolute Nucleated RBC Nucleated RBC % Sodium Potassium Chloride Carbon Dioxide Anion Gap BUN Creatinine Estim Creat Clear Calc Estimated GFR Glucose POC Capillary Glucose 173 H 87 74 Hemoglobin A1c Calcium Phosphorus Magnesium Total Bilirubin AST ALT Alkaline Phosphatase Total Protein Albumin 06/15/24 06/15/24 06/15/24 12:56 14:07 16:00 WBC RBC Hgb Hct MCV MCH MCHC RDW Plt Count MPV Immature Gran % (Auto) Neut % (Auto) Lymph % (Auto) [place] % (Auto) Eos % (Auto) Baso % (Auto) Lymph # (Auto) [place] # (Auto) Eos # (Auto) Baso # (Auto) Abs Immat Gran (auto) Absolute Neuts (auto) Absolute Nucleated RBC Nucleated RBC % Sodium Potassium Chloride Carbon Dioxide Anion Gap BUN Creatinine Estim Creat Clear Calc Estimated GFR Glucose POC Capillary Glucose 166 H 292 H 338 H Hemoglobin A1c Calcium Phosphorus Magnesium Total Bilirubin AST ALT Alkaline Phosphatase Total Protein Albumin 06/15/24 06/15/24 06/16/24 17:32 21:29 04:30 WBC 5.7 RBC 4.21 Hgb 13.4 Hct 37.8 MCV 89.8 MCH 31.8 MCHC 35.4 RDW 12.3 Plt Count 167 MPV 11.2 H Immature Gran % (Auto) 0.2 Neut % (Auto) 47.5 Lymph % (Auto) 40.4 [place] % (Auto) 9.0 H Eos % (Auto) 1.8 Baso % (Auto) 1.1 Lymph # (Auto) 2.28 [place] # (Auto) 0.5 Eos # (Auto) 0.1 Baso # (Auto) 0.1 Abs Immat Gran (auto) 0.01 Absolute Neuts (auto) 2.7 Absolute Nucleated RBC 0.000 Nucleated RBC % 0.0 Sodium 139 Potassium 3.0 L Chloride 108 H Carbon Dioxide 25 Anion Gap 6 BUN 4 L Creatinine 0.40 L Estim Creat Clear Calc 149 Estimated GFR > 60 Glucose 139 H POC Capillary Glucose 394 H 339 H Hemoglobin A1c Calcium 8.0 L Phosphorus 3.4 Magnesium 1.6 Total Bilirubin 0.4 AST 18 ALT 10 Alkaline Phosphatase 59 Total Protein 6.0 L Albumin 2.9 L 06/16/24 07:51 WBC RBC Hgb Hct MCV MCH MCHC RDW Plt Count MPV Immature Gran % (Auto) Neut % (Auto) Lymph % (Auto) [place] % (Auto) Eos % (Auto) Baso % (Auto) Lymph # (Auto) [place] # (Auto) Eos # (Auto) Baso # (Auto) Abs Immat Gran (auto) Absolute Neuts (auto) Absolute Nucleated RBC Nucleated RBC % Sodium Potassium Chloride Carbon Dioxide Anion Gap BUN Creatinine Estim Creat Clear Calc Estimated GFR Glucose POC Capillary Glucose 229 H Hemoglobin A1c Calcium Phosphorus Magnesium Total Bilirubin AST ALT Alkaline Phosphatase Total Protein Albumin Quality VTE Prophylaxis VTE prophylaxis: pharmacologic ordered
[2024-06-16 10:04] LABS: BEDSIDEPREGUCG Negative (Negative)
[2024-06-16 11:05] VITALS: BMI 24.2
--- NOTE | 2024-06-16 12:41 | PM.IMPN ---
Progress Note: A&P Assessment and Plan (1) DKA, type 1: Qualifiers: Diabetes mellitus complication detail: without coma Qualified Code(s): E10.10 - Type 1 diabetes mellitus with ketoacidosis without coma Code(s): E10.10 - Type 1 diabetes mellitus with ketoacidosis without coma Status: Acute Assessment and Plan: Patient euglycemic diabetic ketoacidosis. Receive IV fluids in the ER and ICU, started on insulin infusion, patient's blood sugars were low so patient is on a D10 infusion along with DKA protocol IV fluids -s/p insulin infusion and anion gap has close thus DKA resolved now patient on subcut insulin regimen Adjust Lantus to 18 units and premeal 5 units and SSI accucheks monitor closely (2) Hypophosphatemia: Code(s): E83.39 - Other disorders of phosphorus metabolism Status: Acute Assessment and Plan: Phosphorus has normalized (3) Acute hypokalemia: Code(s): E87.6 - Hypokalemia Status: Acute Assessment and Plan: Replace potassium and magnesium (4) Severe dehydration: Code(s): E86.0 - Dehydration Status: Acute Assessment and Plan: RESOLVED Patient has been adequately fluid-resuscitated, urine output has been adequate -the renal function is normal s/p IVF and encourage po intake (5) Tachycardia: Code(s): R00.0 - Tachycardia, unspecified Status: Acute Assessment and Plan: TACHYCARDIA HAS RESOLVED (6) Abnormal urinalysis: Code(s): R82.90 - Unspecified abnormal findings in urine Status: Acute Assessment and Plan: Abnormal urinalysis likely related to severe dehydration -UA showed urine casts and many squamous epithelial cells -urine and blood cultures are negative -WBC count has resolved. Patient is afebrile Hold antibiotics for now (7) Anxiety and depression: Code(s): F41.9 - Anxiety disorder, unspecified; F32.A - Depression, unspecified Status: Acute Assessment and Plan: Quetiapine, escitalopram, buspirone were restarted Plan DVT prophylaxis: Lovenox Stress ulcer prophylaxis: Not indicated Nutrition: Diabetic diet and tolerating Code Status: Full code Subjective Date/time seen: 06/16/24 12:41 Interval history: Patient was comfortable at bedside however she stated she wants to be discharged We had a long discussion adn I told her that her blood sugar is high and we will have to adjust her insulin and monitor her one more night and consider discharge tomorrow depending on her blood sugar. She however hinted she will leave AMA as her son is not eating adequately because of her absence Review of Systems Review of Systems: 12 systems were reviewed with pertinent positives and negatives per HPI. Except as documented in the HPI, all other systems were reviewed and are negative. All systems reviewed & are unremarkable except as noted in HPI and below Exam Narrative: General: no acute distress HEENT:? Pupils equal and react, sclera is clear, moist oral mucosa Neck:? Supple Respiratory:? Clear to auscultation bilaterally Cardiac:? S1-S2 normal, regular rate and rhythm Abdomen:? Soft, nontender, nondistended, normoactive bowel sounds Extremities:? no edema, palpable pedal pulses Neuro:? Nonfocal, neurologically intact Skin:? Warm and dry, no skin lesions Psych:? anxious Const: Other: No acute distress, well-developed well-nourished, appears stated age HENMT: Other: Mucous membranes are tacky, no oral pharyngeal erythema, fair dentition, head is normocephalic atraumatic Eyes: Other: Pupils are equal and reactive, no scleral icterus Neck: Other: No JVD, no gross thyromegaly Resp: Other: Clear to auscultation bilaterally, no increased work of breathing Cardio: Other: Sinus tachycardia, 2+ bilateral radial pedal pulses, no murmur GI: Other: Soft, nontender, nondistended, positive bowel sounds, belly button ring present Skin: Other: No jaundice, no pallor Neuro: Other: Alert oriented, speech is clear, no facial asymmetry, moves all extremities equally Extrem: Other: No clubbing, cyanosis or edema Psych: Other: Anxious, pleasant, cooperative, fair judgment and insight Objective Data Vital Signs Vital Signs: Vital Signs - 24 hr 06/15/24 14:00 06/15/24 14:00 06/15/24 16:00 Temperature Pulse Rate 106 H 106 H Respiratory Rate 23 H Blood Pressure 135/65 Pulse Oximetry 98 Oxygen Delivery Room Air 06/15/24 16:00 06/15/24 16:00 06/15/24 18:00 Temperature 98.4 F Pulse Rate 91 88 91 Respiratory Rate 22 H Blood Pressure 117/64 Pulse Oximetry 98 Oxygen Delivery 06/15/24 18:00 06/15/24 20:00 06/15/24 20:00 Temperature 98.0 F Pulse Rate 91 103 H Respiratory Rate 24 H 20 Blood Pressure 115/72 91/57 L Pulse Oximetry 98 100 Oxygen Delivery Room Air 06/15/24 22:00 06/15/24 20:00 06/15/24 22:00 Temperature Pulse Rate 94 103 H 94 Respiratory Rate 16 Blood Pressure 114/87 Pulse Oximetry 97 Oxygen Delivery 06/16/24 00:00 06/16/24 00:00 06/16/24 00:00 Temperature 98.1 F Pulse Rate 87 87 Respiratory Rate 17 Blood Pressure 101/64 Pulse Oximetry 98 Oxygen Delivery Room Air 06/16/24 02:00 06/16/24 02:00 06/16/24 04:00 Temperature Pulse Rate 85 85 Respiratory Rate 18 Blood Pressure 114/78 Pulse Oximetry 99 Oxygen Delivery Room Air 06/16/24 04:00 06/16/24 04:00 06/16/24 06:00 Temperature 98.0 F Pulse Rate 67 68 85 Respiratory Rate 14 Blood Pressure 102/67 Pulse Oximetry 97 Oxygen Delivery 06/16/24 06:00 06/16/24 08:00 06/16/24 08:00 Temperature 97.8 F Pulse Rate 85 73 Respiratory Rate 16 18 Blood Pressure 104/81 102/57 L Pulse Oximetry 100 100 Oxygen Delivery Room Air 06/16/24 08:00 Temperature Pulse Rate 72 Respiratory Rate Blood Pressure Pulse Oximetry Oxygen Delivery Intake/Output Intake/Output: Intake & Output 06/13/24 06/14/24 06/15/24 06/16/24 23:59 23:59 23:59 23:59 Intake Total 7 3609.6167 240 Output Total 1900 Balance 2036 1709.6167 240 Meds/Results Radiology Results: ITS Impressions Chest X-Ray 06/14/24 19:30 IMPRESSION: No acute cardiopulmonary process. Chest CTA 06/14/24 21:10 IMPRESSION: No CT evidence of acute pulmonary embolus. No acute process detected in the chest. Labs Labs: Laboratory Results - last 24 hr 06/14/24 06/15/24 06/15/24 19:46 12:56 14:07 WBC RBC Hgb Hct MCV MCH MCHC RDW Plt Count MPV Immature Gran % (Auto) Neut % (Auto) Lymph % (Auto) [place] % (Auto) Eos % (Auto) Baso % (Auto) Lymph # (Auto) [place] # (Auto) Eos # (Auto) Baso # (Auto) Abs Immat Gran (auto) Absolute Neuts (auto) Absolute Nucleated RBC Nucleated RBC % Sodium Potassium Chloride Carbon Dioxide Anion Gap BUN Creatinine Estim Creat Clear Calc Estimated GFR Glucose POC Capillary Glucose 166 H 292 H Calcium Phosphorus Magnesium Total Bilirubin AST ALT Alkaline Phosphatase Total Protein Albumin POC Urine HCG, Qual Negative 06/15/24 06/15/24 06/15/24 16:00 17:32 21:29 WBC RBC Hgb Hct MCV MCH MCHC RDW Plt Count MPV Immature Gran % (Auto) Neut % (Auto) Lymph % (Auto) [place] % (Auto) Eos % (Auto) Baso % (Auto) Lymph # (Auto) [place] # (Auto) Eos # (Auto) Baso # (Auto) Abs Immat Gran (auto) Absolute Neuts (auto) Absolute Nucleated RBC Nucleated RBC % Sodium Potassium Chloride Carbon Dioxide Anion Gap BUN Creatinine Estim Creat Clear Calc Estimated GFR Glucose POC Capillary Glucose 338 H 394 H 339 H Calcium Phosphorus Magnesium Total Bilirubin AST ALT Alkaline Phosphatase Total Protein Albumin POC Urine HCG, Qual 06/16/24 06/16/24 04:30 07:51 WBC 5.7 RBC 4.21 Hgb 13.4 Hct 37.8 MCV 89.8 MCH 31.8 MCHC 35.4 RDW 12.3 Plt Count 167 MPV 11.2 H Immature Gran % (Auto) 0.2 Neut % (Auto) 47.5 Lymph % (Auto) 40.4 [place] % (Auto) 9.0 H Eos % (Auto) 1.8 Baso % (Auto) 1.1 Lymph # (Auto) 2.28 [place] # (Auto) 0.5 Eos # (Auto) 0.1 Baso # (Auto) 0.1 Abs Immat Gran (auto) 0.01 Absolute Neuts (auto) 2.7 Absolute Nucleated RBC 0.000 Nucleated RBC % 0.0 Sodium 139 Potassium 3.0 L Chloride 108 H Carbon Dioxide 25 Anion Gap 6 BUN 4 L Creatinine 0.40 L Estim Creat Clear Calc 149 Estimated GFR > 60 Glucose 139 H POC Capillary Glucose 229 H Calcium 8.0 L Phosphorus 3.4 Magnesium 1.6 Total Bilirubin 0.4 AST 18 ALT 10 Alkaline Phosphatase 59 Total Protein 6.0 L Albumin 2.9 L POC Urine HCG, Qual Quality VTE Prophylaxis VTE prophylaxis: pharmacologic ordered
== END 2024-06-16 11:37 | disposition left against medical advice (07) | DRG 639 ==
LOC: ANHED 21:48 → ANHICU 22:40
PROVIDERS: Internal Medicine; Admitting Provider Internal Medicine; Emergency Provider Emergency Medicine; PCP Nurse Practitioner Family; Visit Provider Internal Medicine
DX: E10.10 Type 1 diabetes mellitus with ketoacidosis without coma (principal); E83.39 Other disorders of phosphorus metabolism; E87.6 Hypokalemia; E86.0 Dehydration; F41.9 Anxiety disorder, unspecified; F17.290 Nicotine dependence, other tobacco product, uncomplicated; F32.A Depression, unspecified; R00.0 Tachycardia, unspecified; R82.90 Unspecified abnormal findings in urine; N31.1 Reflex neuropathic bladder, not elsewhere classified; Z79.4 Long term (current) use of insulin
CPT/HCPCS: 36415; 71045; 71275; 80048; 80053; 80307; 81001; 81025; 82010; 82803; 82948; 83036; 83605; 83690; 83735; 83880; 84100; 84443; 84484; 85025; 85027; 85380; 85610; 85730; 87040; 87086; 87641; 93005; 96365; 96366; 96367; 96372; 96375; 99285; A9270; G0378; J1650; J1815; J2470; J3475; J3480; J7030; J7050; J7120; Q9967